=== PATIENT | male | born 1985 | race Caucasian/White ===

== ENCOUNTER 2022-07-04 10:04 | Emergency (ER) | payer MEDICAID ==
[~2022-07-04] VITALS: Ht 167.6 cm; Wt 90.7 kg
[2022-07-04 10:36] VITALS: BP 144/90
--- NOTE | 2022-07-04 10:42 | NUR ---
seen and examined by dr hu, pt has no medical complaint and does not want to be seem. [id number], ambulatory w/ steady gait. d/c from ed in stable condition.
== END 2022-07-04 10:42 | disposition home or self-care (01) ==
LOC: ER 10:12
DX: Z00.00 Encounter for general adult medical examination without abnormal findings (principal)

== ENCOUNTER 2025-02-19 19:51 | Emergency (ER) | payer MEDICAID, OTHER ==
[~2025-02-19] VITALS: Ht 165.1 cm; Wt 79.4 kg
[2025-02-19 19:56] VITALS: TEMP 98.4
[2025-02-19] MEDS ORDERED: KETOROLAC TROMETHAMINE 15 MG/ML VIAL ONE (20:11)
[2025-02-19] MEDS ORDERED: TDAP [DIPH/PERTUSSIS/TET] 0.5 ML VIAL IM ONE (20:12)
[2025-02-19] MEDS: KETOROLAC TROMETHAMINE 15 MG/ML VIAL IM ONE (20:16)
[2025-02-19] MEDS: TDAP [DIPH/PERTUSSIS/TET] 0.5 ML VIAL IM ONE (20:17)
[2025-02-19] MEDS ORDERED: LIDOCAINE 1% INJ 50 ML MDV IJ ONE (20:32)
[2025-02-19 20:57] VITALS: BP 136/74; O2SAT 97
== END 2025-02-19 21:01 ==
LOC: ER 20:03
DX: S81.811A Laceration without foreign body, right lower leg, initial encounter (principal); S91.011A Laceration without foreign body, right ankle, initial encounter; Z65.3 Problems related to other legal circumstances; W22.09XA Striking against other stationary object, initial encounter; Y93.89 Activity, other specified; Y92.89 Other specified places as the place of occurrence of the external cause; Y99.8 Other external cause status
CPT/HCPCS: 99283; 96372; 73610; J1885; J3490; A6403; 90715